=== PATIENT | female | born 1990 | race Caucasian/White ===

== ENCOUNTER 2022-03-21 08:24 | Outpatient (CLI) | payer OTHER, SELFPAY ==
[2022-03-21 09:24] LABS: Free T4 Free Thyroxine* 1.05 ng/dL (0.70-1.85)
[2022-03-22 18:05] LABS: Free T3 2.9 pg/mL (2.5-4.3)
== END 2022-03-21 08:25 | disposition home or self-care (01) ==
LOC: LAB 08:28
PROVIDERS: Visit Provider Obstetrics & Gynecology
DX: D25.9 Leiomyoma of uterus, unspecified (principal); R76.0 Raised antibody titer; E55.9 Vitamin D deficiency, unspecified; E72.12 Methylenetetrahydrofolate reductase deficiency; D68.69 Other thrombophilia; N84.0 Polyp of corpus uteri
CPT/HCPCS: 36415; 84439; 84443; 84481

== ENCOUNTER 2022-04-03 07:23 | Outpatient (CLI) | payer OTHER, SELFPAY ==
[2022-04-03 07:57] LABS: Basophils Absolute Auto 0.03 K/uL (0.00-0.30); Basophils Percent Auto 0.4 % (0.0-3.0); Eosinophils Absolute Auto 0.17 K/uL (0.00-0.50); Eosinophils Percent Auto 2.4 % (0.0-7.0); Hemoglobin* 13.4 gm/dL (12.0-16.0); Immature Granulocytes Abs Auto 0.03 K/uL (0.00-0.30); Lymphocytes Absolute Auto 2.52 K/uL (0.90-2.90); Lymphocytes Percent Auto 34.9 % (20-44); Mean Corpuscular HGB Conc 33 gm/dL (32-36); Mean Corpuscular Hemoglobin 29 pg (26-34); Mean Corpuscular Volume 89 fL (80-100); Monocytes Percent Auto 11.5 % (0.0-11.0); Neutrophils Absolute Auto 3.64 K/uL (1.7-7.0); Neutrophils Percent Auto 50.4 % (42.0-72.0); Platelet Count* 282 K/uL (140-440); RDW Coefficient of Variation % 12.5 % (11.5-15.5); Red Blood Count 4.61 m/uL (4.00-5.20); White Blood Count* 7.22 K/uL (4.50-11.00)
[2022-04-03 08:18] LABS: Slide Review Reflex No
[2022-04-03 08:24] LABS: Partial Thromboplastin Time* 33 Seconds (23-33)
[2022-04-03 08:25] LABS: Albumin* 4.5 g/dL (3.3-5.0); Chloride* 103 mmol/L (96-114); Potassium* 3.7 mmol/L (3.6-5.1); Sodium* 138 mmol/L (135-149)
[2022-04-03 08:27] LABS: Bilirubin Total* 0.3 mg/dL (0.1-1.5); Carbon Dioxide* 27 mmol/L (20-32); Creatinine* 0.9 mg/dL (0.5-1.5); Estimated Glomerular Filt Rate 87 ml/min
[2022-04-03 08:28] LABS: Alanine Aminotransferase* 88 U/L (4-35); Alkaline Phosphatase* 42 U/L (40-150); Aspartate Amino Transferase* 24 U/L (12-35); Blood Urea Nitrogen* 16 mg/dL (5-24); Glucose* 93 mg/dL (60-115); Total Protein* 7.3 g/dL (6.0-8.3)
[2022-04-03 08:45] LABS: Free T4 Free Thyroxine* 1.06 ng/dL (0.70-1.85)
[2022-04-04 19:45] LABS: Free T3 2.6 pg/mL (2.5-4.3)
== END 2022-04-03 07:24 | disposition home or self-care (01) ==
LOC: LAB 07:27
PROVIDERS: Visit Provider Obstetrics & Gynecology
DX: D25.9 Leiomyoma of uterus, unspecified (principal); D72.9 Disorder of white blood cells, unspecified; E55.9 Vitamin D deficiency, unspecified; E72.12 Methylenetetrahydrofolate reductase deficiency; D68.69 Other thrombophilia
CPT/HCPCS: 36415; 80053; 84439; 84443; 84481; 85025; 85730

== ENCOUNTER 2022-06-11 08:03 | Outpatient (RCR) | payer OTHER, SELFPAY ==
[2022-03-28 09:04] LABS: Free T4 Free Thyroxine* 1.03 ng/dL (0.70-1.85)
[2022-03-29 17:53] LABS: Free T3 2.8 pg/mL (2.5-4.3)
[2022-04-24 08:33] LABS: Albumin* 4.4 g/dL (3.3-5.0); Chloride* 104 mmol/L (96-114); Sodium* 139 mmol/L (135-149)
[2022-04-24 08:35] LABS: Aspartate Amino Transferase* 21 U/L (12-35); Bilirubin Total* 0.3 mg/dL (0.1-1.5); Carbon Dioxide* 26 mmol/L (20-32); Creatinine* 0.8 mg/dL (0.5-1.5); Estimated Glomerular Filt Rate 100 ml/min
[2022-04-24 08:36] LABS: Alanine Aminotransferase* 67 U/L (4-35); Alkaline Phosphatase* 39 U/L (40-150); Blood Urea Nitrogen* 13 mg/dL (5-24); Calcium* 8.9 mg/dL (8.4-10.6); Glucose* 94 mg/dL (60-115)
[2022-04-24 08:53] LABS: Free T4 Free Thyroxine* 1.04 ng/dL (0.70-1.85)
[2022-04-25 19:16] LABS: Free T3 2.4 pg/mL (2.5-4.3)
[2022-05-15 08:26] LABS: Basophils Absolute Auto 0.03 K/uL (0.00-0.30); Basophils Percent Auto 0.5 % (0.0-3.0); Eosinophils Absolute Auto 0.11 K/uL (0.00-0.50); Eosinophils Percent Auto 1.8 % (0.0-7.0); Hematocrit 40.4 % (33.0-51.0); Hemoglobin* 13.4 gm/dL (12.0-16.0); Immature Granulocytes Abs Auto 0.01 K/uL (0.00-0.30); Lymphocytes Percent Auto 45.4 % (20-44); Mean Corpuscular HGB Conc 33 gm/dL (32-36); Mean Corpuscular Hemoglobin 29 pg (26-34); Mean Corpuscular Volume 89 fL (80-100); Monocytes Percent Auto 10.1 % (0.0-11.0); Neutrophils Absolute Auto 2.63 K/uL (1.7-7.0); Platelet Count* 281 K/uL (140-440); RDW Coefficient of Variation % 12.1 % (11.5-15.5); Red Blood Count 4.56 m/uL (4.00-5.20); White Blood Count* 6.25 K/uL (4.50-11.00)
[2022-05-15 08:36] LABS: Slide Review Reflex No
[2022-05-15 08:49] LABS: Partial Thromboplastin Time* 36 Seconds (23-33)
[2022-05-15 10:10] LABS: Albumin* 4.2 g/dL (3.3-5.0); Chloride* 105 mmol/L (96-114); Sodium* 140 mmol/L (135-149)
[2022-05-15 10:11] LABS: Potassium* 4.9 mmol/L (3.6-5.1)
[2022-05-15 10:13] LABS: Alanine Aminotransferase* 20 U/L (4-35); Alkaline Phosphatase* 37 U/L (40-150); Aspartate Amino Transferase* 11 U/L (12-35); Bilirubin Total* 0.4 mg/dL (0.1-1.5); Blood Urea Nitrogen* 13 mg/dL (5-24); Carbon Dioxide* 26 mmol/L (20-32); Creatinine* 0.8 mg/dL (0.5-1.5); Estimated Glomerular Filt Rate 100 ml/min; Total Protein* 6.5 g/dL (6.0-8.3)
[2022-05-15 10:14] LABS: Calcium* 9.6 mg/dL (8.4-10.6); Glucose* 94 mg/dL (60-115)
[2022-05-15 10:28] LABS: Free T4 Free Thyroxine* 1.35 ng/dL (0.70-1.85)
[2022-05-16 19:55] LABS: Free T3 2.9 pg/mL (2.5-4.3)
[2022-05-23 08:33] LABS: Partial Thromboplastin Time* 32 Seconds (23-33)
[2022-05-24 12:01] LABS: Free T3 2.8 pg/mL (2.5-4.3)
[2022-05-29 09:34] LABS: Free T4 Free Thyroxine* 1.36 ng/dL (0.70-1.85)
[2022-05-30 22:52] LABS: Free T3 2.8 pg/mL (2.5-4.3)
[2022-06-04 15:06] LABS: Estradiol Premenol Female 72 pg/mL
[2022-06-04 18:38] LABS: Follicle Stimulating Hormone 11.9 IU/L; Luteinizing Hormone, Serum 8.5 IU/L
[2022-06-11 08:25] LABS: Basophils Absolute Auto 0.04 K/uL (0.00-0.30); Basophils Percent Auto 0.6 % (0.0-3.0); Eosinophils Absolute Auto 0.11 K/uL (0.00-0.50); Eosinophils Percent Auto 1.7 % (0.0-7.0); Hematocrit 41.1 % (33.0-51.0); Hemoglobin* 13.5 gm/dL (12.0-16.0); Immature Granulocytes Abs Auto 0.02 K/uL (0.00-0.30); Lymphocytes Absolute Auto 2.56 K/uL (0.90-2.90); Lymphocytes Percent Auto 39.4 % (20-44); Mean Corpuscular HGB Conc 33 gm/dL (32-36); Mean Corpuscular Hemoglobin 30 pg (26-34); Mean Corpuscular Volume 90 fL (80-100); Monocytes Percent Auto 10.3 % (0.0-11.0); Neutrophils Percent Auto 47.7 % (42.0-72.0); Platelet Count* 293 K/uL (140-440); Red Blood Count 4.55 m/uL (4.00-5.20)
[2022-06-11 08:26] LABS: Slide Review Reflex No
[2022-06-11 08:33] LABS: Albumin* 4.5 g/dL (3.3-5.0)
[2022-06-11 08:34] LABS: Chloride* 104 mmol/L (96-114); Potassium* 4.3 mmol/L (3.6-5.1); Sodium* 138 mmol/L (135-149)
[2022-06-11 08:36] LABS: Alkaline Phosphatase* 38 U/L (40-150); Aspartate Amino Transferase* 14 U/L (12-35); Bilirubin Total* 0.3 mg/dL (0.1-1.5); Blood Urea Nitrogen* 17 mg/dL (5-24); Carbon Dioxide* 28 mmol/L (20-32); Creatinine* 0.8 mg/dL (0.5-1.5); Estimated Glomerular Filt Rate 100 ml/min; INR 0.87 (0.91-1.10); Prothrombin Time 12.2 Seconds; Total Protein* 6.8 g/dL (6.0-8.3)
[2022-06-11 08:37] LABS: Alanine Aminotransferase* 23 U/L (4-35); Calcium* 9.2 mg/dL (8.4-10.6); Glucose* 100 mg/dL (60-115)
== END 2022-07-21 10:21 | disposition home or self-care (01) ==
LOC: LAB 08:03
PROVIDERS: Visit Provider Obstetrics & Gynecology
DX: D25.9 Leiomyoma of uterus, unspecified (principal); R76.0 Raised antibody titer; D72.9 Disorder of white blood cells, unspecified; E55.9 Vitamin D deficiency, unspecified; E72.12 Methylenetetrahydrofolate reductase deficiency; D68.69 Other thrombophilia; Z51.89 Encounter for other specified aftercare
CPT/HCPCS: 36415; 80053; 82670; 83001; 83002; 84439; 84443; 84481; 85025; 85610; 85730

== ENCOUNTER 2022-08-11 07:57 | Outpatient (RCR) | payer OTHER, SELFPAY ==
[2022-07-21 07:44] LABS: Basophils Absolute Auto 0.03 K/uL (0.00-0.30); Basophils Percent Auto 0.4 % (0.0-3.0); Eosinophils Absolute Auto 0.14 K/uL (0.00-0.50); Eosinophils Percent Auto 1.8 % (0.0-7.0); Hematocrit 43.3 % (33.0-51.0); Hemoglobin* 13.9 gm/dL (12.0-16.0); Immature Granulocytes Abs Auto 0.02 K/uL (0.00-0.30); Immature Granulocytes Pct Auto 0.3 %; Lymphocytes Absolute Auto 2.84 K/uL (0.90-2.90); Lymphocytes Percent Auto 37.5 % (20-44); Mean Corpuscular HGB Conc 32 gm/dL (32-36); Mean Corpuscular Hemoglobin 30 pg (26-34); Mean Corpuscular Volume 92 fL (80-100); Monocytes Percent Auto 9.6 % (0.0-11.0); Neutrophils Absolute Auto 3.82 K/uL (1.7-7.0); Neutrophils Percent Auto 50.4 % (42.0-72.0); Platelet Count* 295 K/uL (140-440); Red Blood Count 4.71 m/uL (4.00-5.20); White Blood Count* 7.58 K/uL (4.50-11.00)
[2022-07-21 07:54] LABS: Slide Review Reflex No
[2022-07-21 07:57] LABS: Chloride* 104 mmol/L (96-114)
[2022-07-21 07:58] LABS: Albumin* 4.6 g/dL (3.3-5.0); Potassium* 4.3 mmol/L (3.6-5.1); Sodium* 139 mmol/L (135-149)
[2022-07-21 08:00] LABS: Carbon Dioxide* 28 mmol/L (20-32); Creatinine* 0.8 mg/dL (0.5-1.5); Estimated Glomerular Filt Rate 100 ml/min
[2022-07-21 08:01] LABS: Alanine Aminotransferase* 49 U/L (4-35); Alkaline Phosphatase* 34 U/L (40-150); Aspartate Amino Transferase* 17 U/L (12-35); Bilirubin Total* 0.2 mg/dL (0.1-1.5); Blood Urea Nitrogen* 15 mg/dL (5-24); Calcium* 9.4 mg/dL (8.4-10.6); Glucose* 94 mg/dL (60-115)
[2022-07-21 08:25] LABS: Partial Thromboplastin Time* 29 Seconds (23-33)
[2022-07-21 08:29] LABS: Free T4 Free Thyroxine* 1.21 ng/dL (0.70-1.85)
[2022-07-21 08:43] LABS: Thyroid Stimulating Hormone* 0.814 uIU/mL (0.270-4.20)
[2022-07-23 01:21] LABS: Free T3 2.5 pg/mL (2.5-4.3)
[2022-08-11 08:53] LABS: Albumin* 4.4 g/dL (3.3-5.0); Chloride* 107 mmol/L (96-114); Potassium* 4.5 mmol/L (3.6-5.1); Sodium* 140 mmol/L (135-149)
[2022-08-11 08:55] LABS: Bilirubin Total* 0.4 mg/dL (0.1-1.5); Carbon Dioxide* 27 mmol/L (20-32); Creatinine* 0.8 mg/dL (0.5-1.5); Estimated Glomerular Filt Rate 100 ml/min
[2022-08-11 08:56] LABS: Alanine Aminotransferase* 33 U/L (4-35); Alkaline Phosphatase* 33 U/L (40-150); Aspartate Amino Transferase* 12 U/L (12-35); Blood Urea Nitrogen* 16 mg/dL (5-24); Calcium* 9.7 mg/dL (8.4-10.6); Glucose* 96 mg/dL (60-115); Total Protein* 6.6 g/dL (6.0-8.3)
== END 2023-07-14 15:07 | disposition home or self-care (01) ==
LOC: LAB 07:57
PROVIDERS: Visit Provider Obstetrics & Gynecology
DX: R76.0 Raised antibody titer (principal); E72.12 Methylenetetrahydrofolate reductase deficiency; D68.69 Other thrombophilia; E55.9 Vitamin D deficiency, unspecified; D25.9 Leiomyoma of uterus, unspecified; N84.9 Polyp of female genital tract, unspecified; N83.209 Unspecified ovarian cyst, unspecified side
CPT/HCPCS: 36415; 80053; 84439; 84443; 84481; 85025; 85730

== ENCOUNTER 2022-09-01 10:05 | Outpatient (CLI) | payer OTHER, SELFPAY | END 2022-09-01 10:06 | disposition home or self-care (01) | LOC: NFLDREF 10:06 | PROVIDERS: Visit Provider Obstetrics & Gynecology | DX: R30.0 Dysuria (principal); N39.0 Urinary tract infection, site not specified | CPT/HCPCS: 87086; 87186 ==

== ENCOUNTER 2022-09-23 07:52 | Outpatient (REF) | payer OTHER, SELFPAY ==
[2022-09-23 08:13] LABS: Basophils Absolute Auto 0.04 K/uL (0.00-0.30); Basophils Percent Auto 0.5 % (0.0-3.0); Eosinophils Absolute Auto 0.13 K/uL (0.00-0.50); Eosinophils Percent Auto 1.7 % (0.0-7.0); Hematocrit 43.2 % (33.0-51.0); Immature Granulocytes Abs Auto 0.02 K/uL (0.00-0.30); Immature Granulocytes Pct Auto 0.3 %; Lymphocytes Absolute Auto 2.86 K/uL (0.90-2.90); Lymphocytes Percent Auto 37.7 % (20-44); Mean Corpuscular HGB Conc 32 gm/dL (32-36); Mean Corpuscular Hemoglobin 29 pg (26-34); Mean Corpuscular Volume 90 fL (80-100); Monocytes Percent Auto 7.9 % (0.0-11.0); Neutrophils Absolute Auto 3.94 K/uL (1.7-7.0); Neutrophils Percent Auto 51.9 % (42.0-72.0); Platelet Count* 306 K/uL (140-440); RDW Coefficient of Variation % 12.1 % (11.5-15.5); Red Blood Count 4.79 m/uL (4.00-5.20); White Blood Count* 7.59 K/uL (4.50-11.00)
[2022-09-23 08:23] LABS: Slide Review Reflex No
[2022-09-23 08:41] LABS: Albumin* 4.6 g/dL (3.3-5.0); Chloride* 105 mmol/L (96-114); Partial Thromboplastin Time* 32 Seconds (23-33); Sodium* 140 mmol/L (135-149)
[2022-09-23 08:43] LABS: Bilirubin Total* 0.4 mg/dL (0.1-1.5); Carbon Dioxide* 28 mmol/L (20-32); Creatinine* 0.7 mg/dL (0.5-1.5); Estimated Glomerular Filt Rate 117 ml/min
[2022-09-23 08:44] LABS: Alanine Aminotransferase* 51 U/L (4-35); Alkaline Phosphatase* 39 U/L (40-150); Aspartate Amino Transferase* 21 U/L (12-35); Blood Urea Nitrogen* 15 mg/dL (5-24); Calcium* 9.5 mg/dL (8.4-10.6); Glucose* 90 mg/dL (60-115); Total Protein* 7.1 g/dL (6.0-8.3)
[2022-09-23 09:01] LABS: Free T4 Free Thyroxine* 1.01 ng/dL (0.70-1.85)
[2022-09-24 23:03] LABS: Free T3 2.8 pg/mL (2.5-4.3)
== END 2022-09-23 07:53 | disposition home or self-care (01) ==
LOC: NPINS 07:52
PROVIDERS: PCP Obstetrics & Gynecology; Visit Provider Obstetrics & Gynecology
DX: D68.59 Other primary thrombophilia (principal)
CPT/HCPCS: 80053; 84439; 84443; 84481; 85025; 85730